=== PATIENT | female | born 1965 | race Asian ===

== ENCOUNTER 2019-01-02 17:06 | Emergency (ER) | payer BC, OTHER ==
[~2019-01-02] VITALS: Ht 154.9 cm; Wt 59.4 kg
--- NOTE | 2019-01-02 17:23 | NUR ---
PT BIBSELF FOR RLQ ABD PAIN; PER PT HX OF KIDNEY STONES, PT AAOX4, PT AMBULATORY, PT ON MONITOR, VSS, NAD NOTED. PENDING MD CASIANO
[2019-01-02] MEDS ORDERED: KETOROLAC TROMETHAMINE INJ 30 MG/ML VIAL IV ONE (17:30)
[2019-01-02 17:43] LABS: BASOPHILS % (AUTO) 0.5 % (0.0-2.0); EOSINOPHILS % (AUTO) 1.8 % (0.0-6.0); HEMATOCRIT 41 % (33-45); HEMOGLOBIN 14.1 g/dL (11.5-14.8); LYMPHOCYTES # (AUTO) 2.7 /CMM (0.8-4.8); LYMPHOCYTES % (AUTO) 34.1 % (20.0-44.0); MEAN CORPUSCULAR HGB CONC 34 g/dl (31.0-36.0); MEAN CORPUSCULAR VOLUME 88 fL (82-100); MONOCYTES # (AUTO) 0.5 /CMM (0.1-1.30); MONOCYTES % (AUTO) 6.2 % (2.0-12.0); NEUTROPHILS # (AUTO) 4.5 /CMM (1.8-8.9); NEUTROPHILS % (AUTO) 57.4 % (43.0-81.0); PLATELET COUNT (AUTO) 371 /CMM (150-450); RED BLOOD CELL COUNT(AUTO) 4.69 MIL/uL (4.0-5.2); WHITE BLOOD COUNT (AUTO) 7.8 K/uL (4.3-11.0)
[2019-01-02 17:47] LABS: APPEARANCE,URINE Clear (CLEAR); BILIRUBIN,URINE Negative (NEGATIVE); BLOOD, URINE Large Ery/uL (NEGATIVE); COLOR,URINE Yellow (YELLOW); KETONES,URINE Negative (NEGATIVE); LEUKOCYTE ESTERASE ,URINE Negative (NEGATIVE); NITRITE, URINE Negative (NEGATIVE); PROTEIN,URINE Trace mg/dl (NEGATIVE); UGLUCOSE Negative (NEGATIVE); UROBILINOGEN,URINE 0.2 EU/dL (0.2)
[2019-01-02] MEDS ORDERED: KETOROLAC TROMETHAMINE INJ 30 MG/ML VIAL ONE (17:54)
[2019-01-02 18:05] LABS: CALCIUM, SERUM 8.9 mg/dL (8.5-10.1); CREATININE 0.9 mg/dL (0.6-1.3); POTASSIUM 3.7 mmol/L (3.5-5.1)
[2019-01-02 18:12] LABS: ALBUMIN 3.8 g/dL (3.4-5.0); BILIRUBIN,DIRECT 0.1 mg/dL (0.0-0.2); BILIRUBIN,TOTAL 0.4 mg/dL (0.2-1.0)
[2019-01-02 18:27] LABS: BACTERIA,URINE Few /HPF (None Seen); SQUAMOUS EPITHELIAL CELL,UR Many /HPF (None Seen)
[2019-01-02 18:28] LABS: MUCUS,URINE Few /LPF (None Seen); URINE AMORPHOUS URATE Moderate /HPF (None Seen)
[2019-01-02 18:48] VITALS: BP 141/90
--- NOTE | 2019-01-02 19:03 | NUR ---
Patient discharged to home in stable condition. Written and verbal after care instructions given. Patient verbalizes understanding of instruction. IV removed. Catheter intact and site benign. Pressure and 4x4 applied to site. No bleeding noted.
== END 2019-01-02 19:04 | disposition home or self-care (01) ==
LOC: ER 17:09
DX: N20.0 Calculus of kidney (principal); Z88.2 Allergy status to sulfonamides; Z60.2 Problems related to living alone
CPT/HCPCS: 36415; 74176; 80048; 80076; 81001; 85025; 96374; 99284; J1885; 81000-TC